=== PATIENT | male | born 1975 | race Hispanic/Latino ===

== ENCOUNTER 2022-05-31 08:15 | Outpatient (AMB) | payer MEDICAID, SELFPAY ==
--- NOTE | 2022-05-31 09:26 | RT.TREATMENT ---
Office Procedures RT Procedures Procedures EEG Extended Monitoring Awake/Drowsy: Yes
== END 2022-05-31 09:26 | disposition home or self-care (01) ==
LOC: HODRTX 08:15
PROVIDERS: PCP Physician Assistant; Visit Provider Physician Assistant
DX: R41.3 Other amnesia (principal); S09.90XS Unspecified injury of head, sequela; X58.XXXS Exposure to other specified factors, sequela